=== PATIENT | female | born 1950 | race Caucasian/White ===

== ENCOUNTER 2017-04-29 07:25 | Day surgery (SDC) | payer MEDICARE, BC ==
[2017-04-24 08:06] LABS: BASOPHILS 0.4 %; BASOPHILS ABSOLUTE 0.02 10/3/uL (0.0-0.16); EOSINOPHILS ABSOLUTE 0.11 10/3/uL (0.0-0.53); HEMATOCRIT 41.1 % (36.0-48.0); HEMOGLOBIN 13.6 g/dL (12.0-16.0); IMMATURE GRANULOCYTES 0.2 %; IMMATURE GRANULOCYTES ABSOLUTE 0.01 10/3/uL (0.0-0.11); LYMPHOCYTES 27.9 %; LYMPHOCYTES ABSOLUTE 1.54 10/3/uL (0.67-4.30); MEAN CORPUS HGB CONC 33.1 g/dL (32.0-36.0); MEAN CORPUSCULAR HEMOGLOB 29.2 pg (26.0-34.0); MEAN CORPUSCULAR VOLUME 88.2 fL (80-100); MEAN PLATELET VOLUME 10.2 fL (9.2-13.0); MONOCYTES ABSOLUTE 0.44 10/3/uL (0.21-1.20); NEUTROPHILS 61.5 %; PLATELET COUNT 257 10/3/uL (150-400); RBC DISTRIBUTION WIDTH 13.2 % (12.0-16.0); RED CELL COUNT 4.66 10/6/uL (4.0-5.6); WHITE BLOOD CELLS 5.5 10/3/uL (4.5-10.5)
[2017-04-24 08:07] LABS: MANUAL DIFF NO %
[2017-04-24 08:11] LABS: INTERNATIONAL NORMAL RATI 0.9 UNITS (-); PROTIME (NOT ORD) 12.5 SEC (12.0-14.5)
[2017-04-24 08:25] LABS: A/G RATIO 1.3 (0.7-1.9); ALBUMIN 3.7 G/DL (3.5-5.0); BUN (BLOOD UREA NITROGEN) 14 MG/DL (6-23); CALCIUM, SERUM 8.8 MG/DL (8.5-10.4); CHLORIDE, SERUM 106 MMOL/L (96-112); CO2 (CARBON DIOXIDE) 32 MMOL/L (24-34); CREATININE 0.75 MG/DL (0.55-1.02); GFR AFRICAN AMERICAN 96 ML/MIN (>=60); GFR NON AFRICAN AMERICAN 83 ML/MIN (>=60); GLOBULIN 2.9 G/DL (2.5-4.1); GLUCOSE, SERUM 92 MG/DL (60-99); SGOT(AST) 15 U/L (5-40); SGPT(ALT) 22 U/L (5-65); SODIUM, SERUM 142 MMOL/L (135-148); TOTAL PROTEIN 6.6 G/DL (6.0-8.5)
[2017-04-24 08:26] LABS: ALKALINE PHOSPHATASE 76 U/L (45-117)
[2017-04-24 08:37] LABS: ASCORBIC ACID (UR NOT ORDER) NEG (NEG); BILIRUBIN, URINE NEGATIVE (NEG); KETONE, URINE NEGATIVE (NEG); LEUKOCYTE ESTERASE(NOT OR SMALL (NEG); WBC (NOT ORDERED) (RFLEX) 2 (0-5)
--- NOTE | ~2017-04-29 | OP ---
Record Of Operation [facility] [address] [place]. 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 POSTOPERATIVE DIAGNOSIS: Left hip mass with hypertrophy of the tensor fascia liv. PROCEDURE: Left incisional biopsy of TFL muscle/mass. SURGEON: Iman Rashid M.D. COMPLICATIONS: None. ESTIMATED BLOOD LOSS: 1 to 2 mL. INDICATIONS: This 67-year-old female had a history of a biopsy of a basal cell carcinoma remotely of the skin adjacent to the hip. She also had a remote history of trauma. She presented after 3 to 4 months of hip swelling which was minimally painful. Preoperative workup was essentially negative. The TFL on the MRI was about 5 times its normal size. It did not have any heterogeneous signal but given the mass and the unusual presentation, we decided to perform a biopsy to ensure there was no malignancy and to confirm the diagnosis. DESCRIPTION OF PROCEDURE: The patient was induced in supine position. The left lower extremity was isolated. We made and prepped in the standard fashion and made a longitudinal incision above the area of the old biopsy of the basal cell. We dissected through the subcutaneous tissue and one layer. We opened up the fascia and biopsied the muscle with the TFL that was sent for frozen section and then was essentially normal skeletal muscle. We went deeper and the muscle appeared to be more fibrotic and less contractile. I felt this could have been potentially consistent with a chronic isolated compartment syndrome. We biopsied some of that and sent it to informalin. The wounds were then closed in layers after securing hemostasis. The patient tolerated the procedure well and was taken to PACU in stable condition. POSTOPERATIVE PLAN: Weightbearing as tolerated. Check path. Routine wound care. DEMI/ADELAIDA Iman Rashid M.D. / [id number] CC: Iman Rashid M.D. Record Of Operation [address] [place]. [address] NAME: LIZZ THACKER : 52 STATUS : [facility] PAT#: [id number] AGE: 67 ADM/REG DATE : 04/29/17 MR#: [id number] REPORT SERV DATE: 04/29/17 DICTATED BY: IMAN RASHID DATE: 04/29/17 REPORT STATUS : Draft TRANSCRIBED BY: MODL DATE: 04/29/17 Cande Crowder M.D.
[~2017-04-29 07:25] MED LIST: LUNESTA3 MG PO; ULTRAM50 PO
== END 2017-04-29 14:22 | disposition home or self-care (01) ==
LOC: SDC 07:25
PROVIDERS: Orthopaedic Surgery Sports Medicine
PROC: 0KBP0ZX Excision of Left Hip Muscle, Open Approach, Diagnostic (ICD-10-PCS; principal; 2017-04-29 09:15)
DX: M62.89 Other specified disorders of muscle (principal); M19.90 Unspecified osteoarthritis, unspecified site; Z98.890 Other specified postprocedural states
CPT/HCPCS: 36415; 80053; 81001; 85025; 85610; 85730; 86850; 86900; 86901; 87086; 88305; 88331; 88341; 88342; 93005; J0690; J2250; J2405; J3010